=== PATIENT | male | born 1955 ===

== ENCOUNTER 2017-03-08 13:15 | Day surgery (SDC) | payer MEDICAID ==
[2017-03-08] MEDS ORDERED: LIDOCAINE 1% 2 ML INJ ID PRN (13:33)
[2017-03-08] MEDS ORDERED: LR 1,000 ML IV ONE (13:33)
[2017-03-08 13:46] VITALS: PULSE 78
--- NOTE | 2017-03-08 14:24 | PDANEPAE ---
ANE History of Present Illness Patient presents for screening colonoscopy ANE Past Medical History - Cardiovascular History Hx Hypertension: Yes Hx Arrhythmias: No Hx Chest Pain: No Hx Coronary Artery / Peripheral Vascular Disease: No Hx CHF / Valvular Disease: No Hx Palpitations: No Cardiovascular History Comment: pcp monitors bp meds - Pulmonary History Hx COPD: No Hx Asthma/Reactive Airway Disease: No Hx Recent Upper Respiratory Infection: No Hx Oxygen in Use at Home: No Hx Sleep Apnea: No Sleep Apnea Screening Result - Last Documented: Positive Pulmonary History Comment: lashaun triggers only - Neurologic History Hx Cerebrovascular Accident: No Hx Seizures: No Hx Dementia: No - Endocrine History Hx Diabetes: Yes Endocrine History Comment: type 2 - Renal History Hx Renal Disorders: No - Liver History Hx Hepatic Disorders: No - Neurological & Psychiatric Hx Hx Neurological and Psychiatric Disorders: No - Cancer History Hx Cancer: No - Congenital Disorder History Hx Congenital Disorders: No - GI History Hx Gastrointestinal Disorders: Yes Gastrointestinal History Comment: umbilical hernia. family hx of colon cancer. hx of colonoscopies - Other Health History Other Health History: wears glasses. full set of dentures - Chronic Pain History Chronic Pain: No - Surgical History Prior Surgeries: 2014 colonoscopy ANE Review of Systems - Exercise capacity METS (RN): 4 METS ANE Patient History - Allergies Allergies/Adverse Reactions: No Known Allergies Allergy (Verified 02/03/17 11:41) - Home Medications Home medications: home medication list seen and reviewed Home Medications: Amlodipine Besylate 02/03/17 [Last Taken 03/08/17 06:00] Hydrochlorothiazide 02/03/17 [Last Taken 03/08/17 07:00] Irbesartan 02/03/17 [Last Taken 03/08/17 07:00] Metformin HCl 02/03/17 [Last Taken 03/06/17] - NPO status NPO Status: no food or drink >8 hours NPO Since - Liquids (Date): 03/08/17 NPO Since - Liquids (Time): 06:00 NPO Since - Solids (Date): 03/07/17 NPO Since - Solids (Time): 08:00 - Anes Hx Anes Hx: no prior problems - Smoking Hx Smoking Status: Never smoked - Family Anes Hx Family Hx Anesthesia Complications: none ANE Labs/Vital Signs - Vital Signs Blood Pressure: 156/89 Heart Rate: 78 Respiratory Rate: 16 O2 Sat (%): 95 Height: 160.5 cm Weight: 76.8 kg ANE Physical Exam - Airway Neck exam: FROM Mallampati Score: Class 2 Mouth exam: dentures - Pulmonary Pulmonary: no respiratory distress - Cardiovascular Cardiovascular: regular rate and rhythym - ASA Status ASA Status: II ANE Anesthesia Plan Anesthesia Plan: GA with mask (RBA discussed)
[2017-03-08] MEDS ORDERED: PROPOFOL/EMULSION 500 MG/50 ML BOTTLE IV ONE (14:48)
--- NOTE | 2017-03-08 14:51 | PDGENHP ---
History & Physical Chief Complaint: hx polyps History of Present Illness: 61 year old male with a history of polyps presents for surveillance colonoscopy. Pertinent Past, Social, Family History: PMHx: HANNAH. FaMHx; CRC Relevant Physical Exam: HEENT: anicteric. CV: RRR +s1s2. Lungs: CTAB No w/r/ r. Abd: soft, nt, + BS
[2017-03-08] MEDS ORDERED: ONDANSETRON 4 MG/2 ML VIAL IVP PRN (14:52)
[2017-03-08] MEDS ORDERED: LR 500 ML IV PRN (14:52)
[2017-03-08] MEDS ORDERED: NALOXONE HCL 0.4 MG/ML INJ IVP PRN (14:52)
[2017-03-08] MEDS ORDERED: INDOMETHACIN 50 MG SUPP PR PRN (14:55)
[2017-03-08] MEDS ORDERED: NS 500 ML IV SCH (15:00)
--- NOTE | 2017-03-08 15:35 | POSTOPPROG ---
Post Op Note Date of Operation: 03/08/17 Surgeon: Shane Sorto Anesthesia: IV Sedation Pre-op Diagnosis: hx polyp Post-op Diagnosis: colonic polyps x 3 Indication: hx polyps Procedure: colonoscopy with snare, bx Findings: polyps, tics Inf/Abcess present in the surg proc area at time of surgery?: No Specimen(s): ac x 1 T.c x 2
--- NOTE | 2017-03-08 15:35 | POSTANESTH ---
Post Anesthetic Evaluation Cardiovascular Status: Normal, Stable Respiratory Status: Normal, Stable Level of Consciousness/Mental Status: Can Participate in Eval Pain Control: Adequate, Prn Tx Ordered Nausea/Vomiting Control: Adequate, Prn Tx Ordered Complications Possibly Related to Anesthesia: None Noted
[2017-03-08 15:44] VITALS: TEMP 97.7
[2017-03-08 16:10] VITALS: RESP 16
--- NOTE | 2017-03-08 17:11 | GPN ---
[f rep st] PROCEDURE NOTE DATE OF PROCEDURE: 03/08/2017 PROCEDURE: Colonoscopy with snare polypectomy, biopsy. INDICATIONS: The patient is a 61-year-old male with a history of polyps who presents for surveillance colonoscopy. CONSENT: Risks, benefits, and alternatives of the procedure were discussed in great detail with the patient. Risks of infection, bleeding, perforation, and sedation were discussed. All questions answered and informed consent was obtained. MEDICATIONS: Propofol. Please see Anesthesiology record for details. ESTIMATED BLOOD LOSS: Insignificant. COLONOSCOPIC EVALUATION: A rectal exam was performed and no palpable mass was felt. The Olympus colonoscope was introduced into the rectum and advanced to the cecum, where the ileocecal valve and appendiceal orifice were seen. The quality of prep was good. The colonic mucosa was carefully examined on both insertion and withdrawal of the scope. Scattered diverticulosis was noted, especially in the sigmoid colon. In the transverse colon, 2 polyps of 2-3 mm were seen and removed by biopsy forceps. In the ascending colon, a 5 mm polyp was seen and removed by cold snare polypectomy. IMPRESSION: 1. Colonic polyps x3. 2. Diverticulosis. RECOMMENDATIONS: 1. Follow up on biopsy results. 2. Repeat colonoscopy in 3-5 years (3 years if 3 adenomas, 5 years otherwise) 3. Continue previous medications. 4. Advance diet. /[id number]/MODL MTDD
[2017-03-08 17:38] VITALS: BP 157/91; O2SAT 96
== END 2017-03-08 16:50 | disposition home or self-care (01) ==
LOC: FSGY 13:15
PROVIDERS: ATTEND Internal Medicine Gastroenterology
DX: D12.3 Benign neoplasm of transverse colon (principal); D12.2 Benign neoplasm of ascending colon; K57.30 Diverticulosis of large intestine without perforation or abscess without bleeding; Z86.010 Personal history of colon polyps; Z83.71 Family history of colonic polyps; G47.33 Obstructive sleep apnea (adult) (pediatric)
CPT/HCPCS: J2704